=== PATIENT | male | born 1985 | race Caucasian/White ===

== ENCOUNTER 2018-10-30 17:18 | Inpatient (IN) ==
[2018-10-30 18:10] LABS: Basophils % 0.3 %; Eosinophils # 0.1 K/mcL (0.0-0.6); Eosinophils % 1.8 %; Hematocrit 46.8 % (37.5-50.1); Hemoglobin 16.1 g/dL (12.9-16.9); Immature Granulocytes % 0.4 % (0-4); Lymphocytes # 1.5 K/mcL (0.6-4.6); Lymphocytes % 18.7 %; Mean Corpuscular HGB Conc 34.4 g/dL (31.6-35.5); Mean Corpuscular Hemoglobin 32.1 pg (28.0-33.3); Mean Corpuscular Volume 93.2 fL (83.0-100.0); Mean Platelet Volume 10.6 fL (9.4-12.4); Monocytes # 0.4 K/mcL (0.0-1.3); Monocytes % 5.4 %; Neutrophils # 5.7 K/mcL (1.6-8.9); Platelet Count 184 K/mcL (140-400); Red Blood Count 5.02 M/mcL (4.19-5.50); Red Cell Distribution Width 11.9 % (11.5-14.5); Segmented Neutrophils % 73.4 %
[2018-10-30 18:16] LABS: Bilirubin,Urine Negative (Negative); Blood,Urine Negative (Negative); Clarity,Urine Clear (Clear); Color,Urine Yellow (Yellow); Glucose,Urine (UA) Normal (Normal); Ketones,Urine Negative (Negative); Leukocyte Esterase,Urine Negative (Negative); Nitrite,Urine Negative (Negative); PH,Urine 7.5 pH Units (5.0-8.0); Protein,Urine Negative (Neg-Trace); Specific Gravity,Urine < 1.005 (1.010-1.025); Urobilinogen,Urine Normal (Normal)
[2018-10-30 18:26] LABS: Amphetamine Screen,Urine Negative ng/mL (Cutoff=1000); Barbiturate Screen,Urine Negative ng/mL (Cutoff=200); Benzodiazepines Screen,Urine Negative ng/mL (Cutoff=200); Cannabinoid Screen,Urine Negative ng/mL (Cutoff = 50); Cocaine Screen,Urine Negative ng/mL (Cutoff= 300); Opiate Screen,Urine Negative ng/mL (Cutoff=300); Phencyclidine Screen,Urine Negative ng/mL (Cutoff=25)
--- NOTE | 2018-10-30 18:26 | Emergency Department Note ---
Disposition Clinical Impression: Suicidal ideation, Hallucinations Disposition: Admitted As Inpatient Condition: Fair Time of Disposition: 20:08 General Adult HPI - General Stated complaint: SI Source: patient Limitations: no limitations Nursing Notes Reviewed: Yes Vital Signs Reviewed: Yes - History of Present Illness HPI Narrative: Patient presenting to the emergency department for evaluation of hearing voices and feeling hands touching him. Patient has been diagnosed with schizophrenia. Patient has had a recent increase in his Haldol. The patient overall states that the voices have been getting worse. He is now hearing voices that are from his past. He feels as it seems persecuting him. Patient has what he describes as hands touching him. He describes the hands touching him and his genitals. Pain Scale: 0 - Related Data Home Medications Medication Instructions Recorded Confirmed Clonazepam 02/01/15 02/01/15 Haldol 02/01/15 02/01/15 Seroquel 02/01/15 02/01/15 Previous Rx's Medication Instructions Recorded Sulfamethoxazole/Trimeth DS 1 each PO BID #10 tablet 02/01/15 [Bactrim DS] DiphenhydraMINE [Benadryl] 25 mg PO Q6HR PRN #14 capsule 02/07/15 predniSONE [Prednisone] 3 tab PO DAILY #20 tablet 02/07/15 Lisinopril-HCTZ 10-12.5 [Prinzide 1 each PO DAILY #20 tablet 05/24/15 10-12.5] Allergies Allergy/AdvReac Type Severity Reaction Status Date / Time oxcarbazepine Allergy Anaphylaxis Verified 02/28/18 09:28 [From Trileptal] All systems ED: reviewed and negative except as stated. Review of Systems: As Per HPI Constitutional: Denies: fever, chills ENT ED: Denies: congestion Cardiovascular: Denies: chest pain Respiratory: Denies: cough, dyspnea Gastrointestinal: Denies: abdominal pain, nausea Genitourinary: Denies: dysuria Integumentary: Denies: rash, abrasion, lesions Neurological: Denies: headache Psychiatric: Reports: suicidal thoughts, auditory hallucinations Past Medical History - Past Medical History Medical history: Reports: hypertension Surgical history: Reports: other Psychiatric history: Reports: anxiety, bipolar, schizophrenia - Social History Smoking Status: Current every day smoker Smokeless Tobacco Status: No Alcohol use: Reports: none Drug use: Reports: none Physical Exam General: Well appearing, nontoxic, no acute distress Head: Normocephalic Atraumatic Eyes: PERRL, EOMI ENT: Airway patent, no stridor Neck: supple, no meningismus Chest: Lungs clear to auscultation bilateral Cardiac: Regular rate and rhythm, no murmurs, rubs or gallops Abdomen: soft, nontender, nondistended; no guarding, rebound, or tenderness to percussion Musculoskeletal: Calves symmetric, nontender. Skin: No rash, normal skin tone. Neuro: Alert and Oriented to person, place, and time; No obvious focal deficit. - General Limitations: no limitations General appearance: alert Course Course Narrative: Patient was medically cleared. Patient was called to [facility]. They are familiar with his case and care in his artery been accepted pending medical clearance. Patient has been admitted to their service for further evaluation. Vital Signs Pulse Rate 81 10/30/18 17:35 Respiratory Rate 18 10/30/18 17:35 Blood Pressure 150/101 10/30/18 17:35 O2 Sat by Pulse Oximetry 100 10/30/18 17:35 Temperature 97.5 F L 10/30/18 19:22 Pulse Rate 103 10/30/18 19:22 Respiratory Rate 18 10/30/18 19:22 Blood Pressure 133/97 10/30/18 19:22 O2 Sat by Pulse Oximetry 96 10/30/18 19:22 Oxygen Delivery Oxygen Delivery Room Air Medical Decision Making - Lab Data Result diagrams: 10/30/18 17:48 10/30/18 17:48 Lab Results 10/30/18 10/30/18 10/30/18 Range/Units 17:22 17:44 17:48 WBC 7.8 (4.3-11.1) K/mcL RBC 5.02 (4.19-5.50) M/mcL Hgb 16.1 (12.9-16.9) g/dL Hct 46.8 (37.5-50.1) % MCV 93.2 (83.0-100.0) fL MCH 32.1 (28.0-33.3) pg MCHC 34.4 (31.6-35.5) g/dL RDW 11.9 (11.5-14.5) % Plt Count 184 (140-400) K/mcL MPV 10.6 (9.4-12.4) fL Immature Gran % 0.4 (0-4) % Seg Neutrophils % 73.4 % Lymphocytes % 18.7 % Monocytes % 5.4 % Eosinophils % 1.8 % Basophils % 0.3 % Neutrophils # 5.7 (1.6-8.9) K/mcL Lymphocytes # 1.5 (0.6-4.6) K/mcL Monocytes # 0.4 (0.0-1.3) K/mcL Eosinophils # 0.1 (0.0-0.6) K/mcL Basophils # 0.0 (0.0-0.2) K/mcL Sodium (136-145) mEq/L Potassium (3.5-5.1) mEq/L Chloride (98-107) mEq/L Carbon Dioxide (23-29) mEq/L BUN (6-20) mg/dL Creatinine (0.70-1.30) mg/dL Est GFR ( Amer) (> 60) Est GFR (Non-Af Amer) (> 60) BUN/Creatinine Ratio (6-26) Glucose (70-105) mg/dL Calculated Osmolality (280-300) Calcium (8.6-10.3) mg/dL Urine Color Yellow (Yellow) Urine Clarity Clear (Clear) Urine pH 7.5 (5.0-8.0) pH Units Ur Specific [place] < 1.005 L (1.010-1.025) Urine Protein Negative (Neg-Trace) mg/dL Urine Glucose (UA) Normal (Normal) mg/dL Urine Ketones Negative (Negative) mg/dL Urine Blood Negative (Negative) Urine Nitrite Negative (Negative) Urine Bilirubin Negative (Negative) Urine Urobilinogen Normal (Normal) mg/dL Ur Leukocyte Esterase Negative (Negative) Salicylates (15.0-30.0) mg/dL Urine Opiates Screen Negative (Ivapay=719) ng/mL Acetaminophen (10-20) mcg/mL Ur Barbiturates Screen Negative (Jzbcie=762) ng/mL Ur Phencyclidine Scrn Negative (Cutoff=25) ng/mL Ur Amphetamines Screen Negative (Zxqluw=5324) ng/mL U Benzodiazepines Scrn Negative (Xddxcj=495) ng/mL Urine Cocaine Screen Negative (Cutoff= 300) ng/mL U Marijuana (THC) Screen Negative (Cutoff = 50) ng/mL Ur Drug Screen Interp See Below Ethyl Alcohol (Less than 10) mg/dL 10/30/18 Range/Units 17:48 WBC (4.3-11.1) K/mcL RBC (4.19-5.50) M/mcL Hgb (12.9-16.9) g/dL Hct (37.5-50.1) % MCV (83.0-100.0) fL MCH (28.0-33.3) pg MCHC (31.6-35.5) g/dL RDW (11.5-14.5) % Plt Count (140-400) K/mcL MPV (9.4-12.4) fL Immature Gran % (0-4) % Seg Neutrophils % % Lymphocytes % % Monocytes % % Eosinophils % % Basophils % % Neutrophils # (1.6-8.9) K/mcL Lymphocytes # (0.6-4.6) K/mcL Monocytes # (0.0-1.3) K/mcL Eosinophils # (0.0-0.6) K/mcL Basophils # (0.0-0.2) K/mcL Sodium 134 L (136-145) mEq/L Potassium 4.1 (3.5-5.1) mEq/L Chloride 98 (98-107) mEq/L Carbon Dioxide 27 (23-29) mEq/L BUN 6 (6-20) mg/dL Creatinine 0.92 (0.70-1.30) mg/dL Est GFR ( Amer) > 60 (> 60) Est GFR (Non-Af Amer) > 60 (> 60) BUN/Creatinine Ratio 7 (6-26) Glucose 95 (70-105) mg/dL Calculated Osmolality 275 L (280-300) Calcium 10.2 (8.6-10.3) mg/dL Urine Color (Yellow) Urine Clarity (Clear) Urine pH (5.0-8.0) pH Units Ur Specific [place] (1.010-1.025) Urine Protein (Neg-Trace) mg/dL Urine Glucose (UA) (Normal) mg/dL Urine Ketones (Negative) mg/dL Urine Blood (Negative) Urine Nitrite (Negative) Urine Bilirubin (Negative) Urine Urobilinogen (Normal) mg/dL Ur Leukocyte Esterase (Negative) Salicylates < 2.5 L (15.0-30.0) mg/dL Urine Opiates Screen (Wrpdlk=823) ng/mL Acetaminophen < 10 L (10-20) mcg/mL Ur Barbiturates Screen (Nqdsvs=161) ng/mL Ur Phencyclidine Scrn (Cutoff=25) ng/mL Ur Amphetamines Screen (Klisuo=5882) ng/mL U Benzodiazepines Scrn (Uianba=559) ng/mL Urine Cocaine Screen (Cutoff= 300) ng/mL U Marijuana (THC) Screen (Cutoff = 50) ng/mL Ur Drug Screen Interp Ethyl Alcohol < 10 (Less than 10) mg/dL
[2018-10-30 18:30] LABS: Acetaminophen < 10 mcg/mL (10-20); BUN/Creatinine Ratio 7 (6-26); Blood Urea Nitrogen 6 mg/dL (6-20); Calcium 10.2 mg/dL (8.6-10.3); Carbon Dioxide 27 mEq/L (23-29); Chloride 98 mEq/L (98-107); Ethanol < 10 mg/dL (Less than 10); Glucose 95 mg/dL (70-105); Osmolality,Calculated 275 (280-300); Potassium 4.1 mEq/L (3.5-5.1); Salicylate < 2.5 mg/dL (15.0-30.0); Sodium 134 mEq/L (136-145); eGFR For Non-African Americans > 60 (> 60)
[2018-10-30] MEDS ORDERED: *HR* LORazepam 2 MG/ML VIAL IM PRN (19:05)
[2018-10-30] MEDS ORDERED: Acetaminophen 325 MG TABLET PO PRN (19:05)
[2018-10-30] MEDS ORDERED: MOM Conc 10 ML UD.LIQ PO PRN (19:05)
[2018-10-30] MEDS ORDERED: Mag Hydrox/Al Hydrox/Simeth 30 ML UDC PO PRN (19:05)
[2018-10-30] MEDS ORDERED: hydrOXYzine pamoate 25 MG CAPSULE PO PRN (19:05)
[2018-10-30] MEDS ORDERED: Haloperidol Lactate 5 MG/ML VIAL IM PRN (19:05)
[2018-10-30] MEDS ORDERED: traZODone 50 MG TABLET PO PRN (19:05)
[2018-10-30] MEDS ORDERED: *HR* LORazepam 1 MG TABLET PO PRN (19:05)
[2018-10-30] MEDS: Nicotine 21 MG PATCH.TD24 TD SCH (21:39)
[2018-10-31] MEDS: clonazePAM 0.5 MG TABLET PO SCH ×4 (01:05→21:56)
[2018-10-31] MEDS: Cholecalciferol (D-3) 1,000 UNIT TABLET PO SCH (09:18)
[2018-10-31] MEDS: Nicotine 21 MG PATCH.TD24 TD SCH (09:19)
--- NOTE | 2018-10-31 21:18 | Psychiatry History & Physical ---
Date of Encounter: 10/31/18 Time of Encounter: 15:50 History of Present Illness Patient Stated Chief Complaint: I hear voices and feel hands touching me. Medicare Admission Attestation: For traditional Medicare patients the provided hospital inpatient services are reasonable and necessary and in the case of services not specified as inpatient-only under 42 CFR 419.22 (n), that they are appropriately provided as inpatient services in accordance 42 CFR 412.3. For Critical Access Hospital the patient may reasonably be expected to be discharged or transferred to a hospital within 96 hours after admission to the Critical Access Hospital. Admitted From: Emergency Dept Plans for Post Hospital Care: Home History of Present Illness: Mr. Riggins is a 33 year old male who states that in the past 2-3 weeks, he has been having increased auditory hallucinations and starting to have command hallucinations telling him "You're a bitch and you should kill yourself." He also feels hands touching his penis and anus and feels someone is trying to molest him. He tells me that he always hears voices even when he is at his baseline, but he can usually cope with them and they are not distressing. They are not distressful and he is fighting off the urge to kill himself. He reports having had an increase issue with sleep in the past few weeks. He states the voices decrease in the evening and he can sleep briefly with the evening dose of Seroquel and finds it helpful with his voices. He feels nervous and depressed that this is happening to him. He is asking for help and knows that he needs assistance and medication adjustments. Past Med Surg Social Fam HX - Past Medical History Medical history: hypertension - Past Psychiatric History Psychiatric history: Reports: schizophrenia, previous psychiatric hospitalization Family psychiatric history: Yes Family History of Suicide: Unknown - Past Surgical History Surgical History: other - Social History Smoking Status: Current every day smoker Smokeless Tobacco Status: No Alcohol use: none Drug use: none Occupational status: disabled Current living situation: Home (with friends; Jose and Nelson. "they are like cousins to me." ) Activity Level: Independent ambulation Recent Out of Country Travel Within the Last 8 Weeks: No Exposure or Possible Exposure to Illness During Travel: No Medications & Allergies Benztropine [Cogentin] 1 mg PO BID 10/31/18 [History] Buspirone HCl [Buspar] 5 mg PO BID 10/31/18 [History] Cholecalciferol (D-3) [Vitamin D] 1,000 unit PO DAILY 10/31/18 [History] Haloperidol Decanoate 100 mg IM QMONTH 10/31/18 [History] Lisinopril [Zestril] 20 mg PO DAILY 10/31/18 [History] Quetiapine Fumarate [Seroquel] 800 mg PO HS 10/31/18 [History] clonazePAM [Klonopin] 0.5 mg PO BID 10/31/18 [History] Allergy/AdvReac Type Severity Reaction Status Date / Time oxcarbazepine Allergy Anaphylaxis Verified 02/28/18 09:28 [From Trileptal] Review of Systems Cardiovascular: Denies: chest pain, palpitations, dyspnea on exertion Exam - HEENT Head exam IM: Present: atraumatic Eye exam IM: Present: EOMI, normal appearance - Neurological Neurological exam: Present: alert - Extremities Extremities exam IM: Present: full ROM - Constitutional Vitals: Temp Pulse Resp BP Pulse Ox 96.8 F L 110 18 116/85 99 10/31/18 09:00 10/31/18 09:00 10/31/18 09:00 10/31/18 09:00 10/31/18 09:00 General appearance: age & developmentally appropriate, well-groomed - Musculoskeletal Gait: normal Station: stiff Strength & Tone: normal for patient - Psychiatric Patient Orientation: Yes Person, Yes Time, Yes Place, Yes Circumstance Level of alertness: Alert, Follows commands Behavior: anxious Psychomotor activity: Normal Eye Contact: Maintains Eye Contact Mood Description: Anxious Speech Volume: Normal Speech pattern: normal rate, normal rhythm, normal tone Language & Vocabulary: grade school level Thought Process: Circumstantial, Loose Associations Thought Content: Yes Suicidal ideation Perceptual Disturbances: Yes Auditory hallucinations Attention Span Ability: Capable of Focused Attention Memory Description: Immediate Intact Patient Reliability: Questionable Historian Fund of knowledge: Yes below average Intelligence Estimate: Below Average Judgment: Fair Insight: Minimal Results - Labs Labs: Laboratory Last Values WBC 7.8 K/mcL (4.3-11.1) 10/30/18 17:48 RBC 5.02 M/mcL (4.19-5.50) 10/30/18 17:48 Hgb 16.1 g/dL (12.9-16.9) 10/30/18 17:48 Hct 46.8 % (37.5-50.1) 10/30/18 17:48 MCV 93.2 fL (83.0-100.0) 10/30/18 17:48 MCH 32.1 pg (28.0-33.3) 10/30/18 17:48 MCHC 34.4 g/dL (31.6-35.5) 10/30/18 17:48 RDW 11.9 % (11.5-14.5) 10/30/18 17:48 Plt Count 184 K/mcL (140-400) 10/30/18 17:48 MPV 10.6 fL (9.4-12.4) 10/30/18 17:48 Immature Gran % 0.4 % (0-4) 10/30/18 17:48 Seg Neutrophils % 73.4 % 10/30/18 17:48 18.7 % 10/30/18 17:48 5.4 % 10/30/18 17:48 1.8 % 10/30/18 17:48 0.3 % 10/30/18 17:48 5.7 K/mcL (1.6-8.9) 10/30/18 17:48 1.5 K/mcL (0.6-4.6) 10/30/18 17:48 0.4 K/mcL (0.0-1.3) 10/30/18 17:48 0.1 K/mcL (0.0-0.6) 10/30/18 17:48 0.0 K/mcL (0.0-0.2) 10/30/18 17:48 Sodium 134 mEq/L (136-145) L 10/30/18 17:48 Potassium 4.1 mEq/L (3.5-5.1) 10/30/18 17:48 Chloride 98 mEq/L (98-107) 10/30/18 17:48 Carbon Dioxide 27 mEq/L (23-29) 10/30/18 17:48 BUN 6 mg/dL (6-20) 10/30/18 17:48 0.92 mg/dL (0.70-1.30) 10/30/18 17:48 Est GFR ( Amer) > 60 (> 60) 10/30/18 17:48 Est GFR (Non-Af Amer) > 60 (> 60) 10/30/18 17:48 7 (6-26) 10/30/18 17:48 Glucose 95 mg/dL (70-105) 10/30/18 17:48 275 (280-300) L 10/30/18 17:48 Calcium 10.2 mg/dL (8.6-10.3) 10/30/18 17:48 Yellow (Yellow) 10/30/18 17:22 Clear (Clear) 10/30/18 17:22 7.5 pH Units (5.0-8.0) 10/30/18 17:22 Ur Specific [place] < 1.005 (1.010-1.025) L 10/30/18 17:22 Negative mg/dL (Neg-Trace) 10/30/18 17:22 Normal mg/dL (Normal) 10/30/18 17:22 Negative mg/dL (Negative) 10/30/18 17:22 Negative (Negative) 10/30/18 17:22 Negative (Negative) 10/30/18 17:22 Negative (Negative) 10/30/18 17:22 Normal mg/dL (Normal) 10/30/18 17:22 Ur Leukocyte Esterase Negative (Negative) 10/30/18 17:22 Salicylates < 2.5 mg/dL (15.0-30.0) L 10/30/18 17:48 Negative ng/mL (Elmxxu=648) 10/30/18 17:44 Acetaminophen < 10 mcg/mL (10-20) L 10/30/18 17:48 Ur Barbiturates Screen Negative ng/mL (Tzeiys=689) 10/30/18 17:44 Ur Phencyclidine Scrn Negative ng/mL (Cutoff=25) 10/30/18 17:44 Ur Amphetamines Screen Negative ng/mL (Gcpatp=2512) 10/30/18 17:44 U Benzodiazepines Scrn Negative ng/mL (Eajbxp=740) 10/30/18 17:44 Negative ng/mL (Cutoff= 300) 10/30/18 17:44 U Marijuana (THC) Screen Negative ng/mL (Cutoff = 50) 10/30/18 17:44 Ur Drug Screen Interp See Below 10/30/18 17:44 Ethyl Alcohol < 10 mg/dL (Less than 10) 10/30/18 17:48 Assessment and Plan (1) Schizophrenia Current visit: Yes Status: Acute Plan: Admit inpatient for safety and stabilization, Close observation, Suicide Precautions per unit protocol, Encourage participation in unit milieu, Monitor sleep, Monitor appetite Additional Plan: SPV recently increased his dose of Haldol Dec from 100 mg to 125mg Risks, benefits, side effects, alternatives discussed w/pt: Yes Patient agreeable to treatment: Yes (Add low dose Seroquel in the AM) Plans for Post Hospital Care: Home Estimated Length of Stay (Days): 7
[2018-11-01] MEDS: clonazePAM 0.5 MG TABLET PO SCH ×3 (08:09→20:51)
[2018-11-01] MEDS: Nicotine 21 MG PATCH.TD24 TD SCH (08:09)
[2018-11-01] MEDS: Cholecalciferol (D-3) 1,000 UNIT TABLET PO SCH (08:10)
--- NOTE | 2018-11-01 10:54 | Psychiatry Progress Note ---
Date of Encounter: 11/01/18 Time of Encounter: 10:45 Subjective Interval history: Patient tells me he slept last evening till 3 am again, then woke up but was able to go back to sleep. He finds doing crafts and projects keep him busy and his mind off the voices, "Its a good distraction." He feels the effects of the morning dose of Seroquel. He feels it has taken a slight edge off his voices. He still hears them, but they aren't as distressful today. They are still telling him to kill himself, "But I'm not gonna do that. Id don't want to . I know better" He denies any side effects. He wants to keep trying the day time Seroquel to see if it helps further. Results - Vital Signs Vital Signs: Temp Pulse Resp BP Pulse Ox 97.4 F L 99 14 117/89 99 11/01/18 08:02 11/01/18 08:02 11/01/18 08:02 11/01/18 08:02 11/01/18 08:02 Assessment and Plan (1) Schizophrenia Current visit: Yes Status: Acute Plan: Continue hospitalization, Close observation, Suicide Precautions per unit protocol, Encourage participation in unit milieu Risks, benefits, side effects, alternatives discussed w/pt: Yes Patient agreeable to treatment: Yes (Continue low dose Seroquel in the AM) Consult Discharge Plan - Plan Referrals: NONE,PCP [Primary Care Provider] - Psychiatry Exam - Constitutional Vitals: Temp Pulse Resp BP Pulse Ox 97.4 F L 99 14 117/89 99 11/01/18 08:02 11/01/18 08:02 11/01/18 08:02 11/01/18 08:02 11/01/18 08:02 General appearance: age & developmentally appropriate, well-groomed, well- nourished - Musculoskeletal Gait: slow Station: relaxed Strength & Tone: normal for patient - Psychiatric Patient Orientation: Yes Person, Yes Time, Yes Place, Yes Circumstance Level of alertness: Sedated Behavior: calm Psychomotor activity: Normal Eye Contact: Maintains Eye Contact Affect description: blunted Speech Volume: Normal Speech pattern: normal rate, normal rhythm, normal tone, fluent Language & Vocabulary: consistent with education Thought Process: Circumstantial Thought Content: Yes Suicidal ideation Perceptual Disturbances: Yes Auditory hallucinations Attention Span Ability: Capable of Focused Attention Memory Description: Grossly Intact Patient Reliability: Questionable Historian Fund of knowledge: Yes average Intelligence Estimate: Average Judgment: Fair Insight: Partial
[2018-11-02] MEDS: clonazePAM 0.5 MG TABLET PO SCH ×3 (08:10→21:01)
[2018-11-02] MEDS: Cholecalciferol (D-3) 1,000 UNIT TABLET PO SCH (08:10)
--- NOTE | 2018-11-02 08:29 | Psychiatry Progress Note ---
Date of Encounter: 11/02/18 Time of Encounter: 08:00 Subjective Interval history: "Im okay". States he feels like he is getting better. He is having some nicotine withdrawal, so is switching to oral gum use. He states he did fine on AM low dose Seroquel, and feels it helped with his voices. They were not as loud and did not upset him like they often do. He states that by the afternoon and early evening, they got bad again. He denies any side effects of the AM and was out on the unit participating yesterday without difficulty. He is agreeable to a low dose afternoon dose of Seroquel to see if it helps with the evening auditory hallucinations. He denies SI/HI. Sleep is improved and he is eating well. Results - Vital Signs Vital Signs: Temp Pulse Resp BP Pulse Ox 97.9 F 87 18 149/109 100 11/01/18 21:00 11/01/18 21:00 11/01/18 21:00 11/01/18 21:00 11/01/18 21:00 Assessment and Plan (1) Schizophrenia Current visit: Yes Status: Acute Plan: Continue hospitalization, Close observation, Suicide Precautions per unit protocol, Encourage participation in unit milieu Risks, benefits, side effects, alternatives discussed w/pt: Yes Patient agreeable to treatment: Yes (Afternoon low dose Seroquel targeting voices) Consult Discharge Plan - Plan Referrals: NONE,PCP [Primary Care Provider] - Psychiatry Exam - Constitutional Vitals: Temp Pulse Resp BP Pulse Ox 97.9 F 87 18 149/109 100 11/01/18 21:00 11/01/18 21:00 11/01/18 21:00 11/01/18 21:00 11/01/18 21:00 General appearance: age & developmentally appropriate, well-groomed, well- nourished - Musculoskeletal Gait: normal Station: relaxed Strength & Tone: normal for patient - Psychiatric Patient Orientation: Yes Person, Yes Time, Yes Place, Yes Circumstance Level of alertness: Alert Behavior: calm, cooperative Psychomotor activity: Normal Eye Contact: Maintains Eye Contact Mood Description: Euthymic/stable Affect description: congruent with mood Speech Volume: Normal Speech pattern: normal rate, normal rhythm, normal tone, fluent Language & Vocabulary: consistent with education Thought Process: Intact, Linear Thought Content: Yes Suicidal ideation (denies) Attention Span Ability: Capable of Focused Attention Memory Description: Grossly Intact Patient Reliability: Reliable Historian Fund of knowledge: Yes average Intelligence Estimate: Average Judgment: Good Insight: Partial
[2018-11-02] MEDS: Nicotine 2 MG GUM BC PRN ×2 (10:10→19:46)
[2018-11-03] MEDS: clonazePAM 0.5 MG TABLET PO SCH ×3 (08:40→21:21)
[2018-11-03] MEDS: Cholecalciferol (D-3) 1,000 UNIT TABLET PO SCH (08:40)
[2018-11-03] MEDS: Nicotine 2 MG GUM BC PRN ×4 (08:54→19:41)
--- NOTE | 2018-11-03 10:41 | Psychiatry Progress Note ---
Date of Encounter: 11/03/18 Time of Encounter: 09:50 Subjective Interval history: "It helped. (RE:additional Seroquel afternoon) I stayed awake the rest of the day no problem till I went to sleep at 9:00" States he is no longer hearing loud voices and has decreased thoughts of killing himself. Denies any command hallucinations. He does not appear to be overly sedated during the day and afternoon taking the day time doses of Seroquel. His evening dose was decreased from 800 mg to 400 mg to accommodate the dosage changes during he day. He has no other complaints and tells me that he thinks he will be safe to go home soon. Results - Vital Signs Vital Signs: Temp Pulse Resp BP Pulse Ox 98.1 F 83 16 124/89 97 11/03/18 09:00 11/03/18 09:00 11/03/18 09:00 11/03/18 09:00 11/03/18 09:00 Assessment and Plan (1) Schizophrenia Current visit: Yes Status: Acute Plan: Continue hospitalization, Close observation, Encourage participation in unit milieu Risks, benefits, side effects, alternatives discussed w/pt: Yes Patient agreeable to treatment: Yes (Probable discahrge tomorrow after outpatient agency contacted) Consult Discharge Plan - Plan Referrals: NONE,PCP [Primary Care Provider] - Psychiatry Exam - Constitutional Vitals: Temp Pulse Resp BP Pulse Ox 98.1 F 83 16 124/89 97 11/03/18 09:00 11/03/18 09:00 11/03/18 09:00 11/03/18 09:00 11/03/18 09:00 General appearance: age & developmentally appropriate - Musculoskeletal Gait: normal Station: relaxed Strength & Tone: normal for patient - Psychiatric Patient Orientation: Yes Person, Yes Time, Yes Place, Yes Circumstance Level of alertness: Sedated (mildly) Behavior: cooperative Psychomotor activity: Normal Eye Contact: Maintains Eye Contact Affect description: flat Speech Volume: Normal Speech pattern: normal rate, normal rhythm, normal tone, fluent Language & Vocabulary: consistent with education Thought Process: Intact Attention Span Ability: Capable of Focused Attention Patient Reliability: Reliable Historian Fund of knowledge: Yes average Intelligence Estimate: Average Judgment: Good Insight: Partial
--- NOTE | 2018-11-03 10:56 | Psychiatry Progress Note ---
Date of Encounter: 11/03/18 Time of Encounter: 10:40 Subjective Interval history: Patient tells me, "I'm fine." She denies any issues. She denies she has mental health diagnosis. She tells me when I ask her if she will continue taking her psych meds after discharge, she verbalizes"yes" while shake her head no and smiling. I attempted to talk to her about her probate hearing today. She did not comprehend and just kept asking if she would leave after that, responding to int stim and laughing inappropriately. Results - Vital Signs Vital Signs: Temp Pulse Resp BP Pulse Ox 98.1 F 83 16 124/89 97 11/03/18 09:00 11/03/18 09:00 11/03/18 09:00 11/03/18 09:00 11/03/18 09:00 Assessment and Plan (1) Schizophrenia Current visit: Yes Status: Acute Risks, benefits, side effects, alternatives discussed w/pt: Yes Patient agreeable to treatment: Yes (Probable discahrge tomorrow after outpatient agency contacted) Consult Discharge Plan - Plan Referrals: NONE,PCP [Primary Care Provider] - Psychiatry Exam - Constitutional Vitals: Temp Pulse Resp BP Pulse Ox 98.1 F 83 16 124/89 97 11/03/18 09:00 11/03/18 09:00 11/03/18 09:00 11/03/18 09:00 11/03/18 09:00 General appearance: age & developmentally appropriate - Musculoskeletal Gait: normal Station: stooped (rocking only when she was challenged and got nervous about discharge questions) - Psychiatric Patient Orientation: Yes Place Level of alertness: Follows commands Behavior: anxious Psychomotor activity: Normal Eye Contact: Fleeting Contact Mood Description: Anxious Affect description: inappropriate to situation Speech Volume: Normal Speech pattern: monotone Language & Vocabulary: limited Thought Process: Loose Associations, Disorganized, [place] Perceptual Disturbances: Yes Reacting to internal stimuli Attention Span Ability: Unable to Focus Memory Description: Remote Impaired Patient Reliability: Not Reliable Historian Fund of knowledge: Yes below average Intelligence Estimate: Below Average
[2018-11-04] MEDS: Nicotine 2 MG GUM BC PRN ×2 (04:37→10:10)
[2018-11-04] MEDS: clonazePAM 0.5 MG TABLET PO SCH (08:27)
[2018-11-04] MEDS: Cholecalciferol (D-3) 1,000 UNIT TABLET PO SCH (08:28)
[2018-11-04 08:52] VITALS: BP 141/89
--- NOTE | 2018-11-04 10:09 | Discharge Summary ---
Date of Encounter: 11/04/18 Time of Encounter: 09:35 Diagnosis - Discharge Diagnosis (1) Schizophrenia Status: Acute Qualifiers: Schizophrenia type: unspecified Qualified Code(s): F20.9 - Schizophrenia, unspecified Medications - Discharge Medications Prescriptions: Quetiapine Fumarate [Seroquel] 100 mg PO 1500 30 Days #30 tablet Quetiapine Fumarate [Seroquel] 100 mg PO QAM 30 Days #30 tablet Quetiapine Fumarate [Seroquel] 400 mg PO HS 30 Days #30 tablet Benztropine [Cogentin] 1 mg PO BID 10/31/18 [History] Buspirone HCl [Buspar] 5 mg PO BID 10/31/18 [History] Cholecalciferol (D-3) [Vitamin D] 1,000 unit PO DAILY 10/31/18 [History] Haloperidol Decanoate 100 mg IM QMONTH 10/31/18 [History] Lisinopril [Zestril] 20 mg PO DAILY 10/31/18 [History] clonazePAM [Klonopin] 0.5 mg PO BID 10/31/18 [History] Quetiapine Fumarate [Seroquel] 100 mg PO 1500 30 Days #30 tablet 11/04/18 [Rx] Quetiapine Fumarate [Seroquel] 100 mg PO QAM 30 Days #30 tablet 11/04/18 [Rx] Quetiapine Fumarate [Seroquel] 400 mg PO HS 30 Days #30 tablet 11/04/18 [Rx] Allergy/AdvReac Type Severity Reaction Status Date / Time oxcarbazepine Allergy Anaphylaxis Verified 02/28/18 09:28 [From Trileptal] Results Procedures and tests throughout hospitalization: Completed Lab Orders Category Date Time Status Acetaminophen Stat Lab 10/30/18 17:48 Completed Basic Metabolic Panel Stat Lab 10/30/18 17:48 Completed Complete Blood Count [HEME] Stat Lab 10/30/18 17:48 Completed Drug Screen, Urine [UCHEM] Stat Lab 10/30/18 17:44 Completed Ethanol Stat Lab 10/30/18 17:48 Completed Salicylate Stat Lab 10/30/18 17:48 Completed Urinalysis reflex Microscopic [URIN] Stat Lab 10/30/18 17:22 Completed Provider Date of admission: 10/30/18 18:39 Primary care physician: PCP NONE Psychiatry Exam - Constitutional Vitals: Temp Pulse Resp BP Pulse Ox 97.7 F 94 16 141/89 99 11/04/18 08:51 11/04/18 08:51 11/04/18 08:51 11/04/18 08:51 11/04/18 08:51 General appearance: age & developmentally appropriate, well-groomed, well- nourished - Musculoskeletal Gait: normal Station: relaxed Strength & Tone: normal for patient - Psychiatric Patient Orientation: Yes Person, Yes Time, Yes Place, Yes Circumstance Level of alertness: Alert Behavior: cooperative Psychomotor activity: Normal Eye Contact: Maintains Eye Contact Mood Description: Euthymic/stable Affect description: congruent with mood, blunted (mildly ) Speech Volume: Normal Speech pattern: normal rate, normal rhythm, normal tone, fluent Language & Vocabulary: consistent with education Thought Process: Intact, Linear, Goal Oriented Attention Span Ability: Capable of Focused Attention Memory Description: Grossly Intact Patient Reliability: Reliable Historian Fund of knowledge: Yes average Intelligence Estimate: Average Judgment: Good Insight: Full Hospital Course Hospital course: Mr. Riggins is a 33 year old male who was admitted after being seen in his [facility] clinic and reporting to them that he was having command hallucinations. He receives all his outpatient medications from them. And after reporting this, they gave him an increased dose of Haldol Dec to 125 mg and sent him to for further evaluation and treatment. Patient states that he had been very upset with the command hallucinations telling him that he was worthless that he should kill himself. He states often times he hears voices but they weren't bad and degrading to him until recently. He states he does not want to , but wants help with the voices. He notices that the voices get really bad in the afternoon and evening. After he takes his medications at night, he sleeps and they do not bother him as much. We evaluated his medications. He takes 800 mg of Seroquel at night in addition to the Haldol Dec he receives routinely. We decided to cut his 800 mg of Seroquel back to 400 mg and potentially add doses of Seroquel during the day, as he might be having clearance of the medication in less than a 24 hour period. He was given Seroquel 100 mg PO QAM. We discussed the possibility of it fatiguing and making him too tired to be able to function during the day being a concern. The next day he reported that the 100 mg dose did not make him too tired. He was able to function all day on the unit go to groups without issue. He reported that it was taking a little bit of the edge off the voices that he was still hearing voices in the afternoon. He states there is still commanding him to kill himself. So we added a 2nd dose in the afternoon of the 100 mg targeting the afternoon/evening hallucinations. He continued to sleep well on the unit. Two days after the added 100 mg doses, he reported that he was not hearing any voices at all anymore. "The voices are going away." He reported that taking 100 mg in the morning, 100 mg in the afternoon and 400 mg at night felt very balance for him. He was able to function without issue and was having no auditory or command hallucinations at all. He states that he felt it was an easy medication regime that he could manage and still be able to function on. He denied any suicidal homicidal ideation. His mood was good; he was not depressed nor anxious. He was excited, pleasant and happy. He stated he was ready to be discharged and anticipating discharge back to his previous living environment. Time spent discussing smoking cessation with patient: 3 to 10 minutes Does patient wish to continue nicotine replacement upon disc: No - Time Spent with Patient Total time spent providing and/or coordinating discharge services: 20 min Less than 30 minutes Specific discharge activities: Patient's New prescriptions called into [facility]: Assessment and Plan - Patient/Caregiver Discharge Instructions Activity: resume usual activities as tolerated Diet: regular diet - Follow up Plan Follow up with: Harley Burr [facility] [Outside] - 11/26/18 9:00 am (You have an appointment scheduled for November at 9:00 AM with Jael Bolanos for medication management. You have an appointment scheduled with Reji Lazcano on Tuesday, November 27, 2018 at 9:00 AM for your injection. Please contact the office at least 24 hours in advance if you are unable to keep your appointment(s). ) Functional capacity at discharge: independent ambulation Overall status at discharge: Stable Disposition: Home, Self-Care Quality - Multiple Antipsychotics Patient discharged on 2 or more antipsychotic medications: Yes (He takes Haldol Dec and Seroquel orally; has been on residential therapy) - Justification Documentation of: Other justification (Patient has been on 2 antipsychotics residential therapy with his outpatient mental health agency) Procedures - Procedures Procedures: Medication Management, Crisis Stabilization, Supportive Therapy, Group Therapy
== END 2018-11-04 11:24 | disposition home or self-care (01) | DRG 750 ==
LOC: EMEROOARM 17:18 → 1ANU 18:39
PROVIDERS: ADMIT Psychiatry & Neurology Psychiatry; ATTEND Psychiatry & Neurology Psychiatry

== ENCOUNTER 2018-12-21 07:31 | Observation (INO) ==
[2018-12-21] MEDS ORDERED: 0.9 % Sodium Chloride 1,000 ML IV ONE ×2 (07:58→09:43)
[2018-12-21] MEDS ORDERED: QUEtiapine Fumarate 100 MG TABLET PO ONE (08:09)
[2018-12-21 08:11] LABS: Bilirubin,Urine Negative (Negative); Blood,Urine Negative (Negative); Clarity,Urine Clear (Clear); Color,Urine Yellow (Yellow); Glucose,Urine (UA) Normal (Normal); Ketones,Urine 40 mg/dL (Negative); Leukocyte Esterase,Urine Negative (Negative); Nitrite,Urine Negative (Negative); Protein,Urine Negative (Neg-Trace); Specific Gravity,Urine 1.013 (1.010-1.025); Urobilinogen,Urine Normal (Normal)
[2018-12-21 08:16] LABS: Amphetamine Screen,Urine Negative ng/mL (Cutoff=1000); Barbiturate Screen,Urine Negative ng/mL (Cutoff=200)
[2018-12-21 08:16] LABS: Basophils % 0.2 %; Eosinophils # 0.1 K/mcL (0.0-0.6); Eosinophils % 0.5 %; Hematocrit 44.9 % (37.5-50.1); Hemoglobin 15.5 g/dL (12.9-16.9); Immature Granulocytes % 0.5 % (0-4); Lymphocytes # 1.1 K/mcL (0.6-4.6); Lymphocytes % 11.3 %; Mean Corpuscular HGB Conc 34.5 g/dL (31.6-35.5); Mean Corpuscular Volume 92.8 fL (83.0-100.0); Mean Platelet Volume 10.3 fL (9.4-12.4); Monocytes % 9.7 %; Neutrophils # 7.7 K/mcL (1.6-8.9); Platelet Count 184 K/mcL (140-400); Red Blood Count 4.84 M/mcL (4.19-5.50); Red Cell Distribution Width 11.8 % (11.5-14.5); Segmented Neutrophils % 77.8 %; White Blood Count 9.9 K/mcL (4.3-11.1)
[2018-12-21 08:17] LABS: Benzodiazepines Screen,Urine Negative ng/mL (Cutoff=300); Cannabinoid Screen,Urine Negative ng/mL (Cutoff = 50); Cocaine Screen,Urine Negative ng/mL (Cutoff= 300); Opiate Screen,Urine Negative ng/mL (Cutoff=300); Phencyclidine Screen,Urine Negative ng/mL (Cutoff=25)
[2018-12-21 08:35] LABS: Acetaminophen < 10 mcg/mL (10-20); BUN/Creatinine Ratio 13 (6-26); Blood Urea Nitrogen 13 mg/dL (6-20); Carbon Dioxide 21 mEq/L (23-29); Chloride 92 mEq/L (98-107); Ethanol < 10 mg/dL (Less than 10); Glucose 80 mg/dL (70-105); Osmolality,Calculated 261 (280-300); Potassium 4.7 mEq/L (3.5-5.1); Salicylate < 2.5 mg/dL (15.0-30.0); Sodium 126 mEq/L (136-145); eGFR For African Americans > 60 (> 60); eGFR For Non-African Americans > 60 (> 60)
[2018-12-21 08:48] LABS: Thyroid Stimulating Hormone 0.691 mcIU/mL (0.340-5.600)
[2018-12-21] MEDS ORDERED: QUEtiapine Fumarate 100 MG TABLET PO SCH ×2 (09:00→15:00)
[2018-12-21] MEDS ORDERED: Thiamine (B-1) 100 MG in D5% in Water 50 ML IVPB ONE (09:17)
[2018-12-21] MEDS ORDERED: *HR* LORazepam 2 MG/ML VIAL IVP ONE (09:18)
[2018-12-21] MEDS ORDERED: *HR* LORazepam 2 MG/ML VIAL IVP PRN ×3 (09:41)
[2018-12-21 12:36] LABS: BUN/Creatinine Ratio 15 (6-26); Blood Urea Nitrogen 11 mg/dL (6-20); Calcium 8.6 mg/dL (8.6-10.3); Carbon Dioxide 22 mEq/L (23-29); Chloride 100 mEq/L (98-107); Glucose 108 mg/dL (70-105); Osmolality,Calculated 268 (280-300); Sodium 129 mEq/L (136-145); eGFR For African Americans > 60 (> 60); eGFR For Non-African Americans > 60 (> 60)
[2018-12-21] MEDS: QUEtiapine Fumarate 100 MG TABLET PO SCH ×2 (14:32→19:57)
[2018-12-21] MEDS: Lisinopril 20 MG TABLET PO SCH (14:35)
[2018-12-21] MEDS: Cholecalciferol (D-3) 1,000 UNIT (25MCG) TABLET PO SCH (14:35)
[2018-12-21] MEDS: *HR* Heparin 5,000 UNIT/ML VIAL SQ SCH ×2 (14:35→19:58)
[2018-12-21] MEDS ORDERED: Nicotine 21 MG PATCH.TD24 TD ONE (15:36)
[2018-12-21] MEDS: Ringers Solution, Lactated 1,000 ML IVC SCH (16:20)
[2018-12-21] MEDS ORDERED: Nitroglycerin 0.4 MG TAB.SUBL SL PRN (19:48)
[2018-12-21] MEDS ORDERED: hydrOXYzine pamoate 25 MG CAPSULE PO ONE (20:14)
[2018-12-21] MEDS ORDERED: Acetaminophen 325 MG TABLET PO PRN ×2 (20:14)
[2018-12-22] MEDS: Ringers Solution, Lactated 1,000 ML IVC SCH (02:24)
[2018-12-22] MEDS: *HR* Heparin 5,000 UNIT/ML VIAL SQ SCH ×3 (05:09→20:32)
[2018-12-22] MEDS: Lisinopril 20 MG TABLET PO SCH (08:09)
[2018-12-22] MEDS: Folic Acid 1 MG TABLET PO SCH (08:10)
[2018-12-22] MEDS: Cholecalciferol (D-3) 1,000 UNIT (25MCG) TABLET PO SCH (08:10)
[2018-12-22] MEDS: Vitamin B Complex/Vit C/Vit E 1 EACH TABLET PO SCH (08:10)
[2018-12-22] MEDS: Thiamine (B-1) 100 MG TABLET PO SCH (08:10)
[2018-12-22] MEDS: QUEtiapine Fumarate 100 MG TABLET PO SCH ×3 (08:18→20:32)
[2018-12-22 13:22] LABS: Sodium, Urine 10.5 mEq/L
[2018-12-22] MEDS ORDERED: Sennosides/Docusate Sodium TABLET PO STA (17:41)
[2018-12-22] MEDS ORDERED: Nicotine 21 MG PATCH.TD24 TD ONE (17:48)
[2018-12-23] MEDS: *HR* Heparin 5,000 UNIT/ML VIAL SQ SCH (06:27)
[2018-12-23 06:57] VITALS: BP 128/96
[2018-12-23] MEDS: Lisinopril 20 MG TABLET PO SCH (08:00)
[2018-12-23] MEDS: Vitamin B Complex/Vit C/Vit E 1 EACH TABLET PO SCH (08:00)
[2018-12-23] MEDS: Folic Acid 1 MG TABLET PO SCH (08:00)
[2018-12-23] MEDS: QUEtiapine Fumarate 100 MG TABLET PO SCH (08:00)
[2018-12-23] MEDS: Thiamine (B-1) 100 MG TABLET PO SCH (08:00)
[2018-12-23] MEDS: Cholecalciferol (D-3) 1,000 UNIT (25MCG) TABLET PO SCH (08:00)
== END 2018-12-23 10:49 | disposition other institution (70) ==
LOC: 2NNU 07:31 → EMEROOARM 07:31 → SUATTDRO 12:20 → 2NNU 12:56
PROVIDERS: ADMIT Internal Medicine; ATTEND Internal Medicine

== ENCOUNTER 2018-12-23 10:45 | Inpatient (IN) ==
[2018-12-23] MEDS ORDERED: Acetaminophen 325 MG TABLET PO PRN (11:40)
[2018-12-23] MEDS ORDERED: *HR* LORazepam 1 MG TABLET PO PRN (11:40)
[2018-12-23] MEDS ORDERED: Haloperidol Lactate 5 MG/ML VIAL IM PRN (11:40)
[2018-12-23] MEDS ORDERED: *HR* LORazepam 2 MG/ML VIAL IM PRN (11:40)
[2018-12-23] MEDS ORDERED: Mag Hydrox/Al Hydrox/Simeth 30 ML UDC PO PRN (11:40)
[2018-12-23] MEDS ORDERED: MOM Conc 10 ML UD.LIQ PO PRN (11:40)
[2018-12-23] MEDS: Nicotine 21 MG PATCH.TD24 TD SCH (12:21)
[2018-12-23] MEDS ORDERED: Ketoconazole 2% CRM 15 GM TUBE TP PRN (14:07)
[2018-12-23] MEDS: clonazePAM 0.5 MG TABLET PO SCH (21:17)
[2018-12-24] MEDS: Lisinopril 20 MG TABLET PO SCH (08:31)
[2018-12-24] MEDS: Cholecalciferol (D-3) 1,000 UNIT (25MCG) TABLET PO SCH (08:32)
[2018-12-24] MEDS: Nicotine 21 MG PATCH.TD24 TD SCH (08:32)
[2018-12-24] MEDS: clonazePAM 0.5 MG TABLET PO SCH ×2 (08:32→20:31)
--- NOTE | 2018-12-24 11:19 | Psychiatry History & Physical ---
Date of Encounter: 12/24/18 Time of Encounter: 11:07 History of Present Illness Patient Stated Chief Complaint: voices Medicare Admission Attestation: For traditional Medicare patients the provided hospital inpatient services are reasonable and necessary and in the case of services not specified as inpatient-only under 42 CFR 419.22 (n), that they are appropriately provided as inpatient services in accordance 42 CFR 412.3. For Critical Access Hospital the patient may reasonably be expected to be discharged or transferred to a hospital within 96 hours after admission to the Critical Access Hospital. Admitted From: Intrahospital Transfer Plans for Post Hospital Care: Transfer Psych Facility History of Present Illness: Mr. Riggins is a 33 year old male history of schizophrenia admitted for suicidal ideation discharged form hospitalist service after treated for hyponatrmia. He reports called EMS on 12-22 because he was out of blood pressure pills. He has left home because voices told him to when living with friends Jose & Nelson. He is estranged from family who "disowned " him and told only to call in emergency. He estimates on streets for one day when he started having pain all over. He says that three demons are pressing down on legs and head - they look like people he used to know. He reports vocies still screaming at him with thought to kill himself by jumping in front of truck . FMHx of of schizophrenia in brother who is and mother who -is imprisoned. He stays was trying to repair relationship by writing letters to her but doesn't want to give her bad news that he is in hospital . He reports - adherence with oral medications klonipin and seroquel until the nights he was on street - he received Haloperidol IM 12-14-18. He is open to going to in patient faculty as he doesn't want to go back to friends house. He has previous been hospitalized on 1A several times including recently in October and November 2018. He also reports past diagnosis of bipolar. Previous trial of Trileptal with allergic reaction unspecified. He reports follow with [facility] with medical case manager Reji Cano. He completed 12 th grade after "special class" . PMHx of HTN . Admits to tobacco use of 2-3 packs per day treated with patch. Denies illicit substance or EtOH use. Past Med Surg Social Fam HX - Past Medical History Medical history: hypertension - Past Surgical History Surgical History: other - Social History Smoking Status: Current every day smoker Smokeless Tobacco Status: No Alcohol use: none Drug use: none Medications & Allergies Benztropine [Cogentin] 1 mg PO BID 10/31/18 [History] Buspirone HCl [Buspar] 5 mg PO BID 10/31/18 [History] Cholecalciferol (D-3) [Vitamin D] 1,000 unit PO DAILY 10/31/18 [History] Lisinopril [Zestril] 20 mg PO DAILY 10/31/18 [History] clonazePAM [Klonopin] 0.5 mg PO BID 10/31/18 [History] Haloperidol Decanoate 100 mg IM QMONTH 12/21/18 [History] Ketoconazole 2% CRM [Nizoral Cream] 1 appl TP DAILY PRN 12/21/18 [History] Quetiapine Fumarate [Seroquel] 400 mg PO HS 12/21/18 [History] Quetiapine Fumarate [Seroquel] 200 mg PO 0900,1500 tablet 12/23/18 [Rx] Allergy/AdvReac Type Severity Reaction Status Date / Time oxcarbazepine Allergy Anaphylaxis Verified 12/21/18 17:50 [From Trileptal] Review of Systems Constitutional: Denies: fever, chills Cardiovascular: Denies: chest pain, palpitations Respiratory: Denies: cough, dyspnea Gastrointestinal: Denies: abdominal pain, nausea Genitourinary male: Denies: urgency, dysuria, frequency Musculoskeletal: Reports: other (leg pain) Integumentary: Denies: rash, lesions Neurological: Denies: headache, weakness, numbness Psychiatric: Reports: suicidal ideation, auditory hallucinations, visual hallucinations Endocrine: Denies: fatigue, polyuria Exam - HEENT Head exam IM: Present: atraumatic, normal inspection, normocephalic Eye exam IM: Present: EOMI, normal appearance ENT exam IM: Present: mucous membranes moist, normal external ear exam - Neurological Neurological exam: Present: alert, no focal deficits. Absent: facial droop, speech deficit - Respiratory Respiratory exam IM: Absent: accessory muscle use, respiratory distress, wheezes (not audible ) - Extremities Extremities exam IM: Present: full ROM, normal inspection. Absent: joint swelling, pedal edema - Skin Skin exam IM: Absent: erythema, rash - Constitutional Vitals: Temp Pulse Resp BP Pulse Ox 97.8 F 97 14 122/91 98 12/24/18 09:00 12/24/18 09:00 12/24/18 09:00 12/24/18 09:00 12/24/18 09:00 General appearance: age & developmentally appropriate, well-groomed, well- nourished - Musculoskeletal Gait: normal Station: relaxed Strength & Tone: normal for patient - Psychiatric Patient Orientation: Yes Person, Yes Time, Yes Place Level of alertness: Alert Behavior: calm, cooperative Psychomotor activity: Normal Eye Contact: Maintains Eye Contact Mood Description: Anxious Affect description: congruent with mood Speech Volume: Normal Speech pattern: fluent Language & Vocabulary: consistent with education Thought Process: Tangential, [place] Thought Content: Yes Suicidal ideation, No Homicidal ideation, Yes Paranoid delusion, Yes Baptist delusion, Yes Somatic delusion Perceptual Disturbances: Yes Auditory hallucinations, Yes Visual hallucinations, Yes Tactile hallucinations Attention Span Ability: Capable of Sustained Attention Memory Description: Grossly Intact Patient Reliability: Questionable Historian Fund of knowledge: Yes below average Intelligence Estimate: Below Average Judgment: Limited Insight: Partial Assessment and Plan (1) Schizophrenia Current visit: No Status: Acute Plan: Admit inpatient for safety and stabilization, Close observation, Suicide Precautions per unit protocol, Encourage participation in unit milieu, Group Therapy, Monitor sleep, Monitor appetite Additional Plan: Continue home medications. Appreciate social work help arranging new living situation Qualifiers: Schizophrenia type: paranoid schizophrenia Qualified Code(s): F20.0 - Paranoid schizophrenia (2) Suicidal ideation Current visit: No Status: Acute - Attending Attestation I examined this patient and my medical decision-making was reviewed with the Resident Physician. I agree with the documented findings, disposition and treatment plan as described except to the extent set forth below. Client endorses command hallucinations telling him to harm himself. Denies want ing to . Has a history of suicide attempts but denies current SI, intent, or plan. Feels able to resist voices. Reports he has command AH at baseline. Endorses compliance with meds. Linked with [facility] for mental health services. Has resided at [facility] in the past and wants to return there. No longer feels comfortable living with his friends. Pleasant but seems lower functioning.
[2018-12-25] MEDS: Cholecalciferol (D-3) 1,000 UNIT (25MCG) TABLET PO SCH (08:38)
[2018-12-25] MEDS: clonazePAM 0.5 MG TABLET PO SCH ×2 (08:38→20:37)
[2018-12-25] MEDS: Lisinopril 20 MG TABLET PO SCH (08:38)
[2018-12-25] MEDS: Nicotine 21 MG PATCH.TD24 TD SCH (08:39)
--- NOTE | 2018-12-25 11:18 | Psychiatry Progress Note ---
Date of Encounter: 12/25/18 Time of Encounter: 10:15 Subjective Interval history: Patient is seen walking around the unit and interacting with peers. Today he states that he feels like he is doing "much better" after having a couple showers. He states that he is looking forward to going to [facility], and states that he hopes it will be soon. Patient denies any auditory hallucinations today, claiming that the medicines seem to be working. He denies any current SI, HI, or VH. He denies any new side effects from his medications. Review of Systems Psychiatric: Reports: suicidal ideation, auditory hallucinations, visual hallucinations Results - Vital Signs Vital Signs: Temp Pulse Resp BP Pulse Ox 97.8 F 83 16 150/108 99 12/25/18 09:00 12/25/18 09:00 12/25/18 09:00 12/25/18 09:00 12/25/18 09:00 Assessment and Plan (1) Schizophrenia Current visit: No Status: Acute Plan: Encourage participation in unit milieu, Group Therapy, Monitor sleep, Monitor appetite Additional Plan: Continue home medications. Risks, benefits, side effects, alternatives discussed w/pt: Yes Patient agreeable to treatment: Yes Qualifiers: Schizophrenia type: paranoid schizophrenia Qualified Code(s): F20.0 - Paranoid schizophrenia Consult Discharge Plan - Plan Referrals: NONE,PCP [Primary Care Provider] - - Attending Attestation I examined this patient and my medical decision-making was reviewed with the Resident Physician. I agree with the documented findings, disposition and treatment plan as described except to the extent set forth below. Client in a good mood today. States he feels much better. Denies any SI, intent, or plan. AH still present but at baseline. Feels ready to go to [facility] pending his acceptance there. Will ask for an assessment today. Psychiatry Exam - Constitutional Vitals: Temp Pulse Resp BP Pulse Ox 97.8 F 83 16 150/108 99 12/25/18 09:00 12/25/18 09:00 12/25/18 09:00 12/25/18 09:00 12/25/18 09:00 General appearance: age & developmentally appropriate, well-groomed - Musculoskeletal Gait: normal Station: relaxed Strength & Tone: normal for patient - Psychiatric Patient Orientation: Yes Person, Yes Time, Yes Place, Yes Circumstance Level of alertness: Alert Behavior: calm, cooperative Psychomotor activity: Normal Eye Contact: Maintains Eye Contact Mood Description: Euthymic/stable Patient description of mood: "good" Affect description: congruent with mood Speech Volume: Normal Speech pattern: normal rate, normal rhythm Language & Vocabulary: grade school level Thought Process: Intact Thought Content: Yes Intact, No Suicidal ideation, No Homicidal ideation Perceptual Disturbances: No Auditory hallucinations, No Visual hallucinations Attention Span Ability: Capable of Focused Attention Memory Description: Grossly Intact Patient Reliability: Questionable Historian Intelligence Estimate: Below Average Judgment: Limited Insight: Partial
[2018-12-25] MEDS ORDERED: Haloperidol Decanoate 50 MG/ML VIAL IM ONE (14:02)
[2018-12-26] MEDS: Nicotine 21 MG PATCH.TD24 TD SCH (08:37)
[2018-12-26] MEDS: clonazePAM 0.5 MG TABLET PO SCH ×2 (08:38→20:01)
[2018-12-26] MEDS: Lisinopril 20 MG TABLET PO SCH (08:38)
[2018-12-26] MEDS: Cholecalciferol (D-3) 1,000 UNIT (25MCG) TABLET PO SCH (08:38)
--- NOTE | 2018-12-26 09:30 | Psychiatry Progress Note ---
Date of Encounter: 12/26/18 Time of Encounter: 09:27 Subjective Interval history: Client seems to be doing well. Denies SI/HI. Continues to experience AH but states he hears voices at baseline. Coping well with them. Received Haldol Decanoate injection as scheduled yesterday. Client was assertive in letting staff know he was due for this medication. Compliant with treatment. Sleeping and eating well. Does not really interact with peers but he is pleasant. [facility] [place] Friday. Discharge ready pending acceptance/placement at [facility]. Review of Systems Constitutional: Denies: fever, chills, weakness, weight change Eyes: Denies: eye pain, vision change Ears, Nose, Throat: Denies: ear pain, throat pain, dental pain, hearing loss, congestion Cardiovascular: Denies: chest pain, palpitations, dyspnea on exertion Respiratory: Denies: cough, dyspnea, wheezes Gastrointestinal: Denies: abdominal pain, nausea, vomiting, diarrhea, constipation Musculoskeletal: Denies: joint swelling, joint pain Neurological: Denies: headache, weakness, numbness, memory loss Psychiatric: Reports: suicidal ideation, auditory hallucinations, visual hallucinations Results - Vital Signs Vital Signs: Temp Pulse Resp BP Pulse Ox 98.1 F 83 18 128/84 95 12/26/18 08:46 12/26/18 08:46 12/26/18 08:46 12/26/18 08:46 12/26/18 08:46 Assessment and Plan (1) Schizophrenia Current visit: No Status: Acute Plan: Continue hospitalization, Close observation, Suicide Precautions per unit protocol, Encourage participation in unit milieu, Group Therapy, Monitor sleep, Monitor appetite Risks, benefits, side effects, alternatives discussed w/pt: Yes Patient agreeable to treatment: Yes Qualifiers: Schizophrenia type: paranoid schizophrenia Qualified Code(s): F20.0 - Paranoid schizophrenia Consult Discharge Plan - Plan Referrals: NONE,PCP [Primary Care Provider] - Psychiatry Exam - Constitutional Vitals: Temp Pulse Resp BP Pulse Ox 98.1 F 83 18 128/84 95 12/26/18 08:46 12/26/18 08:46 12/26/18 08:46 12/26/18 08:46 12/26/18 08:46 General appearance: other - Musculoskeletal Gait: normal Station: relaxed Strength & Tone: normal for patient - Psychiatric Patient Orientation: Yes Person, Yes Time, Yes Place Level of alertness: Alert Behavior: calm, cooperative Psychomotor activity: Normal Eye Contact: Maintains Eye Contact Mood Description: Euthymic/stable Affect description: congruent with mood Speech Volume: Normal Speech pattern: normal rate, normal rhythm, normal tone, fluent, spontaneous Language & Vocabulary: consistent with education Thought Process: [place] Thought Content: No Suicidal ideation, No Homicidal ideation, No Overt delusions Perceptual Disturbances: Yes Auditory hallucinations Attention Span Ability: Capable of Focused Attention Memory Description: Grossly Intact Patient Reliability: Reliable Historian Fund of knowledge: Yes below average Intelligence Estimate: Below Average Judgment: Fair Insight: Partial
[2018-12-26] MEDS: hydrOXYzine pamoate 25 MG CAPSULE PO PRN (20:01)
[2018-12-27] MEDS: Cholecalciferol (D-3) 1,000 UNIT (25MCG) TABLET PO SCH (08:47)
[2018-12-27] MEDS: clonazePAM 0.5 MG TABLET PO SCH ×2 (08:47→20:53)
[2018-12-27] MEDS: Lisinopril 20 MG TABLET PO SCH (08:48)
[2018-12-27] MEDS: Nicotine 21 MG PATCH.TD24 TD SCH (08:49)
--- NOTE | 2018-12-27 09:47 | Psychiatry Progress Note ---
Date of Encounter: 12/27/18 Time of Encounter: 09:44 Subjective Interval history: Client pleasant. No behavior problems. Mood stable. Denies SI, intent, or plan. Continues to have AH but states they are at baseline. Claims he has heard voices continuously since he was 17 years old. Twin brother is but also had Schizophrenia and mother was mentally ill as well. [facility] to assess client for placement tomorrow. This health underwriter did notice a rash on the inside of client's arm today. Client states rash has been there since "sleeping outside" prior to admission. Could be bug bites. Client instructed to let staff know if rash spreads or starts to bother him. Client denies any discomfort from it currently. Review of Systems Constitutional: Denies: fever, chills, weakness, weight change Eyes: Denies: eye pain, vision change Ears, Nose, Throat: Denies: ear pain, throat pain, dental pain, hearing loss, congestion Cardiovascular: Denies: chest pain, palpitations, dyspnea on exertion Respiratory: Denies: cough, dyspnea, wheezes Gastrointestinal: Denies: abdominal pain, nausea, vomiting, diarrhea, constipation Musculoskeletal: Denies: joint swelling, joint pain Neurological: Denies: headache, weakness, numbness, memory loss Psychiatric: Reports: suicidal ideation, auditory hallucinations, visual hallucinations Results - Vital Signs Vital Signs: Temp Pulse Resp BP Pulse Ox 97.9 F 88 16 134/85 98 12/27/18 09:00 12/27/18 09:00 12/27/18 09:00 12/27/18 09:00 12/27/18 09:00 Assessment and Plan (1) Schizophrenia Current visit: No Status: Acute Plan: Continue hospitalization, Close observation, Suicide Precautions per unit protocol, Encourage participation in unit milieu, Group Therapy, Monitor sleep, Monitor appetite Risks, benefits, side effects, alternatives discussed w/pt: Yes Patient agreeable to treatment: Yes Qualifiers: Schizophrenia type: paranoid schizophrenia Qualified Code(s): F20.0 - Paranoid schizophrenia Consult Discharge Plan - Plan Referrals: NONE,PCP [Primary Care Provider] - Psychiatry Exam - Constitutional Vitals: Temp Pulse Resp BP Pulse Ox 97.9 F 88 16 134/85 98 12/27/18 09:00 12/27/18 09:00 12/27/18 09:00 12/27/18 09:00 12/27/18 09:00 General appearance: well-groomed, well-nourished - Musculoskeletal Gait: normal Station: relaxed Strength & Tone: normal for patient - Psychiatric Patient Orientation: Yes Person, Yes Time, Yes Place Level of alertness: Alert Behavior: calm, cooperative Psychomotor activity: Normal Eye Contact: Maintains Eye Contact Mood Description: Euthymic/stable Affect description: congruent with mood, full range Speech Volume: Normal Speech pattern: normal rate, normal rhythm, normal tone, fluent, spontaneous Language & Vocabulary: consistent with education Thought Process: [place] Thought Content: No Suicidal ideation, No Homicidal ideation, No Overt delusions Perceptual Disturbances: Yes Auditory hallucinations, No Visual hallucinations Attention Span Ability: Capable of Focused Attention Memory Description: Grossly Intact Patient Reliability: Reliable Historian Fund of knowledge: Yes below average Intelligence Estimate: Below Average Judgment: Fair Insight: Partial
[2018-12-27] MEDS: hydrOXYzine pamoate 25 MG CAPSULE PO PRN (20:53)
--- NOTE | 2018-12-28 08:44 | Psychiatry Progress Note ---
Date of Encounter: 12/28/18 Time of Encounter: 08:30 Subjective Interval history: Mr. Riggins was seen today eating breakfast in the common room. He describes his mood as "good." He is hopeful that [facility] will have a place for him to stay. [facility] informed social work they will be coming to interview Mr. Riggins for housing today. Mr. Riggins denies SI, HI or VH. He admits to which he states he has had since he was a teenager. He says currently "they don't really bother me" and describes them as "noises." He says he slept "good" and woke up at 6 "really wanting some breakfast" but went back to bed until breakfast. Review of Systems Psychiatric: Reports: suicidal ideation, auditory hallucinations. Denies: depression, abnormal sleep pattern, visual hallucinations Results - Vital Signs Vital Signs: Temp Pulse Resp BP Pulse Ox 97.7 F 90 16 128/82 97 12/27/18 20:34 12/27/18 20:34 12/27/18 20:34 12/27/18 20:34 12/27/18 20:34 Assessment and Plan (1) Schizophrenia Current visit: No Status: Acute Plan: Continue hospitalization, Encourage participation in unit milieu, Group Therapy, Monitor sleep, Monitor appetite Additional Plan: [facility] to come and evaluate today for housing placement. Risks, benefits, side effects, alternatives discussed w/pt: Yes Patient agreeable to treatment: Yes Qualifiers: Schizophrenia type: paranoid schizophrenia Qualified Code(s): F20.0 - Paranoid schizophrenia Consult Discharge Plan - Plan Referrals: NONE,PCP [Primary Care Provider] - - Attending Attestation I examined this patient and my medical decision-making was reviewed with the Markie amaya Physician. I agree with the documented findings, disposition and treatment plan as described except to the extent set forth below. Agree with mental status. Agree with plan. Awaiting H[facility]'s bed Psychiatry Exam - Constitutional Vitals: Temp Pulse Resp BP Pulse Ox 97.7 F 90 16 128/82 97 12/27/18 20:34 12/27/18 20:34 12/27/18 20:34 12/27/18 20:34 12/27/18 20:34 General appearance: age & developmentally appropriate, well-groomed, well- nourished - Musculoskeletal Gait: normal Station: relaxed Strength & Tone: normal for patient - Psychiatric Patient Orientation: Yes Person, Yes Time, Yes Place, Yes Circumstance Level of alertness: Alert Behavior: calm, cooperative Psychomotor activity: Normal Eye Contact: Maintains Eye Contact Mood Description: Euthymic/stable Patient description of mood: "good" Affect description: congruent with mood Speech Volume: Normal Speech pattern: normal rate, normal rhythm, normal tone, appropriate Language & Vocabulary: consistent with education Thought Process: Intact, Logical, Linear, Goal Oriented Thought Content: Yes Intact, No Suicidal ideation, No Homicidal ideation, No Paranoid delusion Perceptual Disturbances: Yes Auditory hallucinations, No Visual hallucinations, No Tactile hallucinations Attention Span Ability: Capable of Focused Attention, Capable of Sustained Attention Memory Description: Grossly Intact Patient Reliability: Reliable Historian Fund of knowledge: Yes average, Yes below average Intelligence Estimate: Below Average Judgment: Fair Insight: Partial
[2018-12-28] MEDS: Nicotine 21 MG PATCH.TD24 TD SCH (08:52)
[2018-12-28] MEDS: Cholecalciferol (D-3) 1,000 UNIT (25MCG) TABLET PO SCH (08:53)
[2018-12-28] MEDS: clonazePAM 0.5 MG TABLET PO SCH ×2 (08:53→20:17)
[2018-12-28] MEDS: Lisinopril 20 MG TABLET PO SCH (08:54)
[2018-12-29] MEDS: clonazePAM 0.5 MG TABLET PO SCH (08:52)
[2018-12-29] MEDS: Nicotine 21 MG PATCH.TD24 TD SCH (08:52)
[2018-12-29] MEDS: Cholecalciferol (D-3) 1,000 UNIT (25MCG) TABLET PO SCH (08:52)
[2018-12-29] MEDS: Lisinopril 20 MG TABLET PO SCH (08:52)
--- NOTE | 2018-12-29 09:01 | Discharge Summary ---
Date of Encounter: 12/29/18 Time of Encounter: 07:30 Diagnosis - Discharge Diagnosis (1) Schizophrenia Status: Acute Qualifiers: Schizophrenia type: paranoid schizophrenia Qualified Code(s): F20.0 - Paranoid schizophrenia Medications - Discharge Medications Prescriptions: Buspirone HCl [Buspar] 5 mg PO BID #30 tablet Benztropine [Cogentin] 1 mg PO BID #15 tablet Haloperidol Decanoate 100 mg IM QMONTH #1 vial clonazePAM [Klonopin] 0.5 mg PO BID 15 Days #30 tablet Ketoconazole 2% CRM [Nizoral Cream] 1 appl TP DAILY PRN #1 tube PRN Reason: Rash Quetiapine Fumarate [Seroquel] 200 mg PO 0900,1500 #30 tablet Quetiapine Fumarate [Seroquel] 400 mg PO HS #15 tablet hydrOXYzine pamoate [Vistaril] 25 mg PO TID PRN #30 capsule PRN Reason: Anxiety Cholecalciferol (D-3) [Vitamin D] 1,000 unit PO DAILY #15 tablet Lisinopril [Zestril] 20 mg PO DAILY #15 tablet Benztropine [Cogentin] 1 mg PO BID #15 tablet 12/29/18 [Rx] Buspirone HCl [Buspar] 5 mg PO BID #30 tablet 12/29/18 [Rx] Cholecalciferol (D-3) [Vitamin D] 1,000 unit PO DAILY #15 tablet 12/29/18 [Rx] Haloperidol Decanoate 100 mg IM QMONTH #1 vial 12/29/18 [Rx] Ketoconazole 2% CRM [Nizoral Cream] 1 appl TP DAILY PRN #1 tube 12/29/18 [Rx] Lisinopril [Zestril] 20 mg PO DAILY #15 tablet 12/29/18 [Rx] Quetiapine Fumarate [Seroquel] 200 mg PO 0900,1500 #30 tablet 12/29/18 [Rx] Quetiapine Fumarate [Seroquel] 400 mg PO HS #15 tablet 12/29/18 [Rx] clonazePAM [Klonopin] 0.5 mg PO BID 15 Days #30 tablet 12/29/18 [Rx] hydrOXYzine pamoate [Vistaril] 25 mg PO TID PRN #30 capsule 12/29/18 [Rx] Allergy/AdvReac Type Severity Reaction Status Date / Time oxcarbazepine Allergy Anaphylaxis Verified 12/21/18 17:50 [From Trileptal] Provider Date of admission: 12/23/18 10:45 Primary care physician: PCP NONE Discharging clinician: Mae Medrano Psychiatry Exam - Constitutional Vitals: Temp Pulse Resp BP Pulse Ox 98.7 F 90 16 130/81 97 12/28/18 20:12 12/28/18 20:12 12/28/18 20:12 12/28/18 20:12 12/28/18 20:12 General appearance: age & developmentally appropriate, well-groomed, well-nourished - Musculoskeletal Gait: normal Station: relaxed Strength & Tone: normal for patient - Psychiatric Patient Orientation: Yes Person, Yes Time, Yes Place, Yes Circumstance Level of alertness: Alert Behavior: calm, cooperative Psychomotor activity: Normal Eye Contact: Maintains Eye Contact Mood Description: Euthymic/stable Patient description of mood: good Affect description: congruent with mood, full range Speech Volume: Normal Speech pattern: normal rate, normal rhythm, normal tone, fluent, spontaneous Language & Vocabulary: consistent with education Thought Process: Linear, Goal Oriented Thought Content: No Suicidal ideation, No Homicidal ideation, No Overt delusions Perceptual Disturbances: No Auditory hallucinations, No Visual hallucinations Attention Span Ability: Capable of Focused Attention Memory Description: Grossly Intact Patient Reliability: Reliable Historian Fund of knowledge: Yes abstraction ability, Yes aware of current events Intelligence Estimate: Average Judgment: Good Insight: Full Hospital Course Hospital course: Mr. Riggins is a 33 year old male who was admitted for psychosis. He was started on medications to address his mood lability.Patient was educated of diagnosis and the risk-benefit side effects of this alternative treatment options and was monitored for responsiveness and side effects. Mood anxiety sleep and appetite interest improved as did future orientation. Self-harm thoughts subsided, thinking cleared, psychosis resolved, and mood stabilized. Patient was able to attend both individual and group therapy sessions as well as meet with the psychiatrist daily and urged to discuss any medication or treatment issues or other concerns. The patient was educated primarily by verbal means about their diagnosis and manifestations in their life. The option for treatment including group and individual therapy programming was offered to the patient in addition to the use of medications with all their potential risks, benefits, and side effects as well as the risks of not taking medication and non-adhereance were discussed with the patient at length. The patient was given the opportunity to ask questions and was noted to participate in the treatment in the planning process. The patient felt ready and eager to be discharged from the inpatient psychiatric unit to continue on with treatment as an outpatient. The patient agreed that is they were safe for this disposition. The patient was considered to be able to participate in informed consent and decision making with respect to medical, legal, and financial issues of the time of discharge. At the time of discharge the patient adamantly denied any concerns for lethality including suicidal or homicidal thoughts ideations or plans and was future oriented toward ongoing mental health care, medical follow-up and sobriety. Time spent discussing smoking cessation with patient: 3 to 10 minutes Does patient wish to continue nicotine replacement upon disc: No - Time Spent with Patient Total time spent providing and/or coordinating discharge services: 25 Less than 30 minutes Specific discharge activities: Interval history reviewed. Available labs reviewed . Psychotherapy provided. Patient had an opportunity to ask questions and address concerns. Patient was in agreement with the treatment plan. The risks benefits and side effects of medications were discussed with the patient, including alternatives and treatment. The patient was educated on the abstaining from any alcohol or illicit substances, following up with all scheduled appointments, and taking all medications as prescribed. The patient was educated on 90 meetings in 90 days and to find a sponsor. Assessment and Plan - Patient/Caregiver Discharge Instructions Activity: resume usual activities as tolerated Diet: regular diet Additional Instructions: Continue current medications. Follow up with outpatient mental health. Encourage continued therapy in a group or individual setting. The patient was discharged to home. - Follow up Plan Follow up with: NONE,PCP [Primary Care Provider] - Functional capacity at discharge: independent ambulation Overall status at discharge: Stable Disposition: Home, Self-Care Quality - Multiple Antipsychotics Patient discharged on 2 or more antipsychotic medications: Yes - Justification Documentation of: History 3 failed trials of monotherapy (Seroquel, Haldol, latuda) Procedures - Procedures Procedures: Medication Management, Crisis Stabilization, Supportive Therapy, Group Therapy, Psychoeducational Therapy
[2018-12-29 09:18] VITALS: BP 126/84
== END 2018-12-29 12:37 | disposition home or self-care (01) | DRG 750 ==
LOC: 1ANU 10:45 → SUATTDRO 10:45 → 1ANU 16:22
PROVIDERS: ADMIT Psychiatry & Neurology Psychiatry; ATTEND Psychiatry & Neurology Psychiatry

== ENCOUNTER 2020-07-12 09:06 | Inpatient (IN) ==
[2020-07-12] MEDS ORDERED: Acetaminophen 325 MG TABLET PO PRN (09:16)
[2020-07-12] MEDS ORDERED: MOM Conc 10 ML UD.LIQ PO PRN (09:16)
[2020-07-12] MEDS ORDERED: traZODone 50 MG TABLET PO PRN (09:16)
[2020-07-12] MEDS ORDERED: *HR* LORazepam 1 MG TABLET PO PRN (09:16)
[2020-07-12] MEDS ORDERED: haloperidoL 5 MG TABLET PO PRN (09:16)
[2020-07-12] MEDS ORDERED: *HR* LORazepam 2 MG/ML VIAL IM PRN (09:16)
[2020-07-12] MEDS ORDERED: hydrOXYzine pamoate 25 MG CAPSULE PO PRN (09:16)
[2020-07-12] MEDS ORDERED: Mag Hydrox/Al Hydrox/Simeth 30 ML UDC PO PRN (09:16)
[2020-07-12] MEDS ORDERED: Haloperidol Lactate 5 MG/ML VIAL IM PRN (09:16)
[2020-07-12] MEDS: Nicotine 21 MG PATCH.TD24 TD SCH (10:47)
[2020-07-12] MEDS: Cholecalciferol (D-3) 1,000 UNIT (25MCG) TABLET PO SCH (10:47)
[2020-07-12] MEDS: lisinopriL 10 MG TABLET PO SCH (10:47)
[2020-07-12] MEDS ORDERED: Melatonin 3 MG TABLET PO SCH (21:00)
[2020-07-12] MEDS ORDERED: QUEtiapine Fumarate 300 MG TABLET PO SCH (21:00)
[2020-07-13] MEDS: Nicotine 21 MG PATCH.TD24 TD SCH (08:55)
[2020-07-13] MEDS: Cholecalciferol (D-3) 1,000 UNIT (25MCG) TABLET PO SCH (08:56)
[2020-07-13] MEDS: lisinopriL 10 MG TABLET PO SCH (08:56)
[2020-07-13 09:08] VITALS: BP 128/88
== END 2020-07-13 12:35 | disposition home or self-care (01) | DRG 750 ==
LOC: 1ANU 09:06
PROVIDERS: ADMIT Psychiatry & Neurology Psychiatry; ATTEND Psychiatry & Neurology Psychiatry

== ENCOUNTER 2020-07-13 18:37 | Inpatient (IN) ==
[2020-07-13 19:22] LABS: Basophils # 0.1 K/mcL (0.0-0.2); Basophils % 0.4 %; Eosinophils # 0.1 K/mcL (0.0-0.6); Eosinophils % 0.5 %; Hematocrit 39.7 % (37.5-50.1); Hemoglobin 13.6 g/dL (12.9-16.9); Immature Granulocytes % 0.7 % (0-4); Lymphocytes # 1.1 K/mcL (0.6-4.6); Lymphocytes % 9.2 %; Mean Corpuscular HGB Conc 34.3 g/dL (31.6-35.5); Mean Corpuscular Hemoglobin 30.6 pg (28.0-33.3); Mean Corpuscular Volume 89.2 fL (83.0-100.0); Mean Platelet Volume 9.9 fL (9.4-12.4); Monocytes # 0.6 K/mcL (0.0-1.3); Monocytes % 4.8 %; Neutrophils # 10.1 K/mcL (1.6-8.9); Platelet Count 190 K/mcL (140-400); Red Blood Count 4.45 M/mcL (4.19-5.50); Red Cell Distribution Width 11.7 % (11.5-14.5); Segmented Neutrophils % 84.4 %
[2020-07-13 19:23] LABS: Bilirubin,Urine Negative (Negative); Blood,Urine Negative (Negative); Clarity,Urine Clear (Clear); Color,Urine Colorless (Yellow); Glucose,Urine (UA) Normal (Normal); Ketones,Urine Negative (Negative); Leukocyte Esterase,Urine Negative (Negative); Nitrite,Urine Negative (Negative); Protein,Urine Negative (Neg-Trace); Specific Gravity,Urine 1.009 (1.010-1.025); Urobilinogen,Urine Normal (Normal)
[2020-07-13 19:39] LABS: Amphetamine Screen,Urine Negative ng/mL (Cutoff=1000); Barbiturate Screen,Urine Negative ng/mL (Cutoff=200); Benzodiazepines Screen,Urine Negative ng/mL (Cutoff=200); Cannabinoid Screen,Urine Negative ng/mL (Cutoff = 50); Cocaine Screen,Urine Negative ng/mL (Cutoff= 300); Opiate Screen,Urine Negative ng/mL (Cutoff=300); Phencyclidine Screen,Urine Negative ng/mL (Cutoff=25)
[2020-07-13 19:41] LABS: Estimated Average Glucose 111 mg/dl; Hemoglobin A1C 5.5 %
[2020-07-13 19:54] LABS: Acetaminophen < 10 mcg/mL (10-20); BUN/Creatinine Ratio 17 (6-26); Blood Urea Nitrogen 14 mg/dL (6-20); Calcium 9.9 mg/dL (8.6-10.3); Carbon Dioxide 21 mEq/L (23-29); Chloride 95 mEq/L (98-107); Chol/HDL Ratio 2.8 (0-4.9); Cholesterol 130 mg/dL (< 200); Ethanol < 10 mg/dL (Less than 10); Glucose 146 mg/dL (70-105); HDL Cholesterol 47 mg/dL (40-59); LDL Cholesterol,Calculated 60 mg/dL (< 100); Osmolality,Calculated 269 (280-300); Potassium 3.6 mEq/L (3.5-5.1); Salicylate < 2.5 mg/dL (15.0-30.0); Sodium 128 mEq/L (136-145); Triglycerides 117 mg/dL (< 150); eGFR For African Americans > 60 (> 60); eGFR For Non-African Americans > 60 (> 60)
[2020-07-13] MEDS ORDERED: Haloperidol Lactate 5 MG/ML VIAL IM PRN (22:20)
[2020-07-13] MEDS ORDERED: haloperidoL 5 MG TABLET PO PRN (22:20)
[2020-07-13] MEDS ORDERED: *HR* LORazepam 2 MG/ML VIAL IM PRN (22:20)
[2020-07-13] MEDS ORDERED: MOM Conc 10 ML UD.LIQ PO PRN (22:20)
[2020-07-13] MEDS ORDERED: *HR* LORazepam 1 MG TABLET PO PRN (22:20)
[2020-07-13] MEDS ORDERED: Mag Hydrox/Al Hydrox/Simeth 30 ML UDC PO PRN (22:20)
[2020-07-13] MEDS ORDERED: NON-FORMULARY MEDICATION 1 EACH EACH (Quetiapine Fumarate [Seroquel] 800 MG) PO SCH (22:30)
[2020-07-13] MEDS: Acetaminophen 325 MG TABLET PO PRN (22:57)
[2020-07-13] MEDS: Melatonin 3 MG TABLET PO SCH (23:00)
[2020-07-14] MEDS: traZODone 50 MG TABLET PO PRN ×2 (01:59→22:18)
[2020-07-14] MEDS: hydrOXYzine pamoate 25 MG CAPSULE PO PRN ×2 (01:59→22:18)
[2020-07-14] MEDS: Cholecalciferol (D-3) 1,000 UNIT (25MCG) TABLET PO SCH (09:09)
[2020-07-14] MEDS: lisinopriL 10 MG TABLET PO SCH (09:09)
[2020-07-14] MEDS: Nicotine 21 MG PATCH.TD24 TD SCH (09:09)
[2020-07-14] MEDS: Melatonin 3 MG TABLET PO SCH (20:15)
[2020-07-15] MEDS: Cholecalciferol (D-3) 1,000 UNIT (25MCG) TABLET PO SCH (08:58)
[2020-07-15] MEDS: lisinopriL 10 MG TABLET PO SCH (08:58)
[2020-07-15] MEDS: Nicotine 21 MG PATCH.TD24 TD SCH (08:58)
[2020-07-15] MEDS: Melatonin 3 MG TABLET PO SCH (20:42)
[2020-07-15] MEDS: traZODone 50 MG TABLET PO PRN (21:54)
[2020-07-15] MEDS: hydrOXYzine pamoate 25 MG CAPSULE PO PRN (21:54)
[2020-07-16] MEDS: lisinopriL 10 MG TABLET PO SCH (08:32)
[2020-07-16] MEDS: Cholecalciferol (D-3) 1,000 UNIT (25MCG) TABLET PO SCH (08:32)
[2020-07-16] MEDS: Nicotine 21 MG PATCH.TD24 TD SCH (08:33)
[2020-07-16] MEDS: Acetaminophen 325 MG TABLET PO PRN (12:36)
[2020-07-16] MEDS: Melatonin 3 MG TABLET PO SCH (20:17)
[2020-07-16] MEDS: hydrOXYzine pamoate 25 MG CAPSULE PO PRN (20:19)
[2020-07-16] MEDS: traZODone 50 MG TABLET PO PRN (20:20)
[2020-07-17] MEDS: Cholecalciferol (D-3) 1,000 UNIT (25MCG) TABLET PO SCH (08:46)
[2020-07-17] MEDS: lisinopriL 10 MG TABLET PO SCH (08:46)
[2020-07-17] MEDS: Nicotine 21 MG PATCH.TD24 TD SCH (08:47)
[2020-07-17] MEDS: Melatonin 3 MG TABLET PO SCH (20:06)
[2020-07-17] MEDS: traZODone 50 MG TABLET PO PRN (20:07)
[2020-07-17] MEDS: hydrOXYzine pamoate 25 MG CAPSULE PO PRN (20:07)
[2020-07-18 08:46] VITALS: BP 115/82
[2020-07-18] MEDS: Nicotine 21 MG PATCH.TD24 TD SCH (08:49)
[2020-07-18] MEDS: Cholecalciferol (D-3) 1,000 UNIT (25MCG) TABLET PO SCH (08:50)
[2020-07-18] MEDS: lisinopriL 10 MG TABLET PO SCH (08:51)
== END 2020-07-18 16:00 | disposition home or self-care (01) | DRG 750 ==
LOC: EMEROOARM 18:37 → 1ANU 22:18
PROVIDERS: ADMIT Psychiatry & Neurology Psychiatry; ATTEND Psychiatry & Neurology Psychiatry

== ENCOUNTER 2021-10-11 17:58 | Inpatient (IN) ==
[2021-10-11 19:07] LABS: Amphetamine Screen,Urine Negative ng/mL (Cutoff=1000); Barbiturate Screen,Urine Negative ng/mL (Cutoff=200); Benzodiazepines Screen,Urine Negative ng/mL (Cutoff=200); Cannabinoid Screen,Urine Negative ng/mL (Cutoff = 50); Cocaine Screen,Urine Negative ng/mL (Cutoff= 300); Opiate Screen,Urine Negative ng/mL (Cutoff=300); Phencyclidine Screen,Urine Negative ng/mL (Cutoff=25)
[2021-10-11 19:23] LABS: Bilirubin,Urine Negative (Negative); Blood,Urine Negative (Negative); Clarity,Urine Clear (Clear); Color,Urine Colorless (Yellow); Glucose,Urine (UA) Normal (Normal); Ketones,Urine Negative (Negative); Leukocyte Esterase,Urine Negative (Negative); Nitrite,Urine Negative (Negative); Protein,Urine Negative (Neg-Trace); Specific Gravity,Urine 1.005 (1.010-1.025); Urobilinogen,Urine Normal (Normal)
[2021-10-11 19:45] LABS: Basophils % 0.4 %; Eosinophils # 0.1 K/mcL (0.0-0.6); Eosinophils % 1.6 %; Hematocrit 40.6 % (37.5-50.1); Hemoglobin 14.8 g/dL (12.9-16.9); Immature Granulocytes % 0.3 % (0-4); Lymphocytes # 1.3 K/mcL (0.6-4.6); Lymphocytes % 18.2 %; Mean Corpuscular HGB Conc 36.5 g/dL (31.6-35.5); Mean Corpuscular Hemoglobin 30.8 pg (28.0-33.3); Mean Corpuscular Volume 84.4 fL (83.0-100.0); Mean Platelet Volume 9.9 fL (9.4-12.4); Monocytes # 0.6 K/mcL (0.0-1.3); Monocytes % 8.4 %; Neutrophils # 5.2 K/mcL (1.6-8.9); Platelet Count 222 K/mcL (140-400); Red Blood Count 4.81 M/mcL (4.19-5.50); Red Cell Distribution Width 11.9 % (11.5-14.5); Segmented Neutrophils % 71.1 %; White Blood Count 7.4 K/mcL (4.3-11.1)
[2021-10-11 20:03] LABS: Acetaminophen < 10 mcg/mL (10-20); Alanine Aminotransferase 15 Units/L (7-52); Albumin 4.6 g/dL (3.5-5.7); Albumin/Globulin Ratio 2.3 (1.1-2.2); Alkaline Phosphatase 57 Units/L (34-104); Aspartate Amino Transferase 16 Units/L (13-39); BUN/Creatinine Ratio 9 (6-26); Bilirubin,Indirect 0.4 mg/dL (0.0-1.0); Bilirubin,Total 0.4 mg/dL (0.3-1.0); Blood Urea Nitrogen 6 mg/dL (6-20); Calcium 9.4 mg/dL (8.6-10.3); Carbon Dioxide 22 mEq/L (23-29); Chloride 94 mEq/L (98-107); Chol/HDL Ratio 2.4 (0-4.9); Cholesterol 111 mg/dL (< 200); Ethanol < 10 mg/dL (Less than 10); Glucose 94 mg/dL (70-105); HDL Cholesterol 46 mg/dL (40-59); LDL Cholesterol,Calculated 52 mg/dL (< 100); Osmolality,Calculated 257 (280-300); Potassium 4.3 mEq/L (3.5-5.1); Salicylate < 2.5 mg/dL (15.0-30.0); Sodium 125 mEq/L (136-145); Total Protein 6.6 g/dL (6.4-8.9); Triglycerides 64 mg/dL (< 150); eGFR For African Americans > 60 (> 60); eGFR For Non-African Americans > 60 (> 60)
[2021-10-11 21:00] LABS: Estimated Average Glucose 111 mg/dl; Hemoglobin A1C 5.5 %
[2021-10-12] MEDS ORDERED: Acetaminophen 325 MG TABLET PO ONE (00:28)
[2021-10-12 01:45] LABS: Influenza A PCR Negative (Negative); Influenza B PCR Negative (Negative); Resp. Syncytial Virus PCR Negative (Negative); SARS-CoV-2 by PCR (In House) Negative (Negative)
[2021-10-12] MEDS ORDERED: traZODone 50 MG TABLET PO PRN (01:45)
[2021-10-12] MEDS ORDERED: QUEtiapine Fumarate 100 MG TABLET PO PRN (01:48)
[2021-10-12] MEDS ORDERED: Acetaminophen 325 MG TABLET PO PRN (02:04)
[2021-10-12] MEDS ORDERED: *HR* LORazepam 2 MG/ML VIAL IM PRN (02:04)
[2021-10-12] MEDS ORDERED: *HR* LORazepam 1 MG TABLET PO PRN (02:04)
[2021-10-12] MEDS ORDERED: haloperidoL 5 MG TABLET PO PRN (02:04)
[2021-10-12] MEDS ORDERED: Haloperidol Lactate 5 MG/ML VIAL IM PRN (02:04)
[2021-10-12] MEDS: Nicotine 21 MG PATCH.TD24 TD SCH (08:54)
[2021-10-12] MEDS ORDERED: Nicotine 21 MG PATCH.TD24 TD SCH (11:45)
[2021-10-12] MEDS: lisinopriL 10 MG TABLET PO SCH (12:00)
[2021-10-12] MEDS: Cholecalciferol (D-3) 1,000 UNIT (25MCG) TABLET PO SCH (12:01)
[2021-10-12] MEDS ORDERED: Mag Hydrox/Al Hydrox/Simeth 30 ML UDC PO PRN (12:14)
[2021-10-12] MEDS ORDERED: MOM Conc 10 ML UD.LIQ PO PRN (12:14)
[2021-10-12] MEDS ORDERED: Menthol 1 EACH LOZENGE MM PRN (12:17)
[2021-10-12] MEDS: Melatonin 3 MG TABLET PO SCH (20:52)
[2021-10-12] MEDS: QUETIAPINE FUMARATE PO SCH (20:56)
[2021-10-12] MEDS: hydrOXYzine pamoate 25 MG CAPSULE PO PRN (20:56)
[2021-10-12] MEDS ORDERED: QUEtiapine Fumarate 100 MG TABLET PO SCH ×2 (21:00)
[2021-10-13] MEDS: Nicotine 21 MG PATCH.TD24 TD SCH (09:01)
[2021-10-13] MEDS: lisinopriL 10 MG TABLET PO SCH (09:02)
[2021-10-13] MEDS: Cholecalciferol (D-3) 1,000 UNIT (25MCG) TABLET PO SCH (09:03)
[2021-10-13] MEDS ORDERED: Haloperidol Decanoate 50 MG/ML VIAL IM SCH (10:15)
[2021-10-13 11:08] LABS: Basophils % 0.4 %; Eosinophils # 0.1 K/mcL (0.0-0.6); Eosinophils % 1.1 %; Hematocrit 43.7 % (37.5-50.1); Hemoglobin 15.1 g/dL (12.9-16.9); Immature Granulocytes % 0.3 % (0-4); Lymphocytes % 10.3 %; Mean Corpuscular HGB Conc 34.6 g/dL (31.6-35.5); Mean Corpuscular Volume 86.9 fL (83.0-100.0); Mean Platelet Volume 9.6 fL (9.4-12.4); Monocytes # 0.7 K/mcL (0.0-1.3); Monocytes % 7.5 %; Neutrophils # 7.4 K/mcL (1.6-8.9); Platelet Count 212 K/mcL (140-400); Red Blood Count 5.03 M/mcL (4.19-5.50); Red Cell Distribution Width 12.2 % (11.5-14.5); Segmented Neutrophils % 80.4 %; White Blood Count 9.2 K/mcL (4.3-11.1)
[2021-10-13 11:32] LABS: Alanine Aminotransferase 17 Units/L (7-52); Albumin 4.4 g/dL (3.5-5.7); Alkaline Phosphatase 54 Units/L (34-104); Aspartate Amino Transferase 15 Units/L (13-39); BUN/Creatinine Ratio 10 (6-26); Bilirubin,Total 0.5 mg/dL (0.3-1.0); Blood Urea Nitrogen 9 mg/dL (6-20); Calcium 9.5 mg/dL (8.6-10.3); Carbon Dioxide 25 mEq/L (23-29); Chloride 95 mEq/L (98-107); Globulin 2.2 g/dL (2.4-3.5); Glucose 75 mg/dL (70-105); Osmolality,Calculated 261 (280-300); Potassium 4.4 mEq/L (3.5-5.1); Sodium 127 mEq/L (136-145); Total Protein 6.6 g/dL (6.4-8.9); eGFR For African Americans > 60 (> 60); eGFR For Non-African Americans > 60 (> 60)
[2021-10-13] MEDS: hydrOXYzine pamoate 25 MG CAPSULE PO PRN (18:37)
[2021-10-13] MEDS: Melatonin 3 MG TABLET PO SCH (20:13)
[2021-10-13] MEDS: QUETIAPINE FUMARATE PO SCH (20:13)
[2021-10-14] MEDS: Nicotine 21 MG PATCH.TD24 TD SCH (08:52)
[2021-10-14] MEDS: lisinopriL 10 MG TABLET PO SCH (08:55)
[2021-10-14] MEDS: Cholecalciferol (D-3) 1,000 UNIT (25MCG) TABLET PO SCH (08:55)
[2021-10-14] MEDS: hydrOXYzine pamoate 25 MG CAPSULE PO PRN ×3 (08:56→18:22)
[2021-10-14] MEDS: QUETIAPINE FUMARATE PO SCH (20:21)
[2021-10-14] MEDS: Melatonin 3 MG TABLET PO SCH (20:24)
[2021-10-15] MEDS: Nicotine 21 MG PATCH.TD24 TD SCH (08:25)
[2021-10-15] MEDS: lisinopriL 10 MG TABLET PO SCH (08:25)
[2021-10-15] MEDS: Cholecalciferol (D-3) 1,000 UNIT (25MCG) TABLET PO SCH (08:28)
[2021-10-15] MEDS: hydrOXYzine pamoate 25 MG CAPSULE PO PRN ×2 (08:33→12:52)
[2021-10-15] MEDS: Melatonin 3 MG TABLET PO SCH (20:31)
[2021-10-15] MEDS: QUETIAPINE FUMARATE PO SCH (20:31)
[2021-10-16] MEDS: hydrOXYzine pamoate 25 MG CAPSULE PO PRN (08:31)
[2021-10-16] MEDS: Cholecalciferol (D-3) 1,000 UNIT (25MCG) TABLET PO SCH (08:31)
[2021-10-16] MEDS: lisinopriL 10 MG TABLET PO SCH (08:31)
[2021-10-16] MEDS: Nicotine 21 MG PATCH.TD24 TD SCH (08:31)
[2021-10-16 10:27] VITALS: BP 125/83; PULSE 105; TEMP 96.8; O2SAT 100
== END 2021-10-16 13:34 | disposition home or self-care (01) | DRG 750 ==
LOC: 1ANU 17:58 → EMEROOARM 17:58 → 1ANU 10-12 02:45
PROVIDERS: ADMIT Psychiatry & Neurology Psychiatry; ATTEND Psychiatry & Neurology Psychiatry